=== PATIENT | male | born 1975 | race Caucasian/White ===

== ENCOUNTER 2023-10-20 00:05 | Inpatient (IN) | payer OTHER, SELFPAY ==
[~2023-10-20] VITALS: Ht 177.8 cm; Wt 98.4 kg
[2023-10-21] VITALS (8 sets, daily range): BP systolic 136–159; BP diastolic 84–96; TEMP 97.4–98.8; O2SAT 91–99
[2023-10-21] MEDS ORDERED: ONDANSETRON 4MG 2ML VIAL IV PRN ×2 (03:10→12:00)
[2023-10-21] MEDS ORDERED: MORPHINE 2 MG/ML 1ML VIAL IV PRN ×2 (03:15)
[2023-10-21] MEDS: NS 1,000 ML IV SCH ×2 (03:20→10:19)
[2023-10-21] MEDS ORDERED: GLUCAGON INJ 1MG VIAL SC PRN (03:25)
[2023-10-21] MEDS ORDERED: DEXTROSE 50% 50ML SYRINGE IV PRN (03:25)
[2023-10-21] MEDS ORDERED: GLUCOSE 4GM CHEW TABLET PO PRN (03:25)
[2023-10-21 03:37] LABS: BASO # 0.1 10^3/uL (0.0-0.2); BASO % 0.6 % (0.0-1.0); EOS # 0.2 10^3/uL (0.0-0.5); EOS % 1.5 % (0.0-3.0); HEMATOCRIT 42.5 % (42.0-52.0); HEMOGLOBIN 14.3 g/dl (13.5-17.5); LYMPH # 2.8 10^3/uL (1.5-5.0); LYMPH % 27.4 % (24.0-44.0); MEAN CORPUSCULAR HEMOGLOBIN 29.8 pg (27.0-33.0); MEAN CORPUSCULAR HGB CONC 33.6 g/dl (32.0-36.5); MEAN CORPUSCULAR VOLUME 88.5 fl (80.0-96.0); MONO # 0.8 10^3/uL (0.0-0.8); NEUTROPHILS # 6.3 10^3/uL (1.5-8.5); NEUTROPHILS % 62.2 % (36.0-66.0); PLATELET COUNT, AUTOMATED 210 10^3/uL (150-450); WHITE BLOOD COUNT 10.1 10^3/uL (4.0-10.0)
[2023-10-21 04:01] LABS: ALBUMIN 3.8 G/DL (3.2-5.2); BILIRUBIN,TOTAL 0.5 MG/DL (0.3-1.2); CALCIUM LEVEL 8.5 MG/DL (8.5-10.1); CREATININE FOR GFR 1.44 MG/DL (0.70-1.30); POTASSIUM SERUM 4.3 MMOL/L (3.5-5.1); TOTAL PROTEIN 6.5 G/DL (5.7-8.2)
[2023-10-21] MEDS ORDERED: HOME MED LIST COMPLETE! XX SCH (06:50)
[2023-10-21] MEDS: TAMSULOSIN 0.4 MG CAP PO SCH (09:00)
[2023-10-21] MEDS: cefTRIAXone SOD 2 GM in D5W MINI-BAG PLUS 50 ML IV SCH (10:43)
[2023-10-21] MEDS ORDERED: ISOVUE-300 61% 50ML VIAL XX ONE (11:08)
[2023-10-21] MEDS ORDERED: fentaNYL 100 MCG/2 ML INJECTION As Ordered ONE (11:27)
[2023-10-21] MEDS ORDERED: ACETAMINOPHEN 1000MG 100ML IV BAG As Ordered ONE (11:27)
[2023-10-21] MEDS ORDERED: propofoL 200 MG/20 ML VIAL As Ordered ONE ×2 (11:27→12:04)
[2023-10-21] MEDS ORDERED: MIDAZOLAM INJ 2MG/2ML VIAL As Ordered ONE (11:27)
[2023-10-21] MEDS ORDERED: ONDANSETRON 4MG 2ML VIAL As Ordered ONE (11:27)
[2023-10-21] MEDS ORDERED: LIDOCAINE 2% 100MG/5ML SDV (FOR ANES.) As Ordered ONE (11:27)
[2023-10-21 11:32] LABS: PHOSPHORUS LEVEL 3.4 MG/DL (2.5-4.9)
[2023-10-21] MEDS ORDERED: LR 1,000 ML IV SCH (12:00)
[2023-10-21] MEDS ORDERED: fentaNYL 100 MCG/2 ML INJECTION IV PRN (12:00)
[2023-10-21] MEDS ORDERED: oxyCODONE 5MG TAB PO PRN (12:00)
[2023-10-21 12:42] LABS: APPEARANCE, URINE CLEAR (CLEAR); BACTERIA, URINE AUTO NEGATIVE (NEGATIVE); BILIRUBIN, URINE AUTO NEGATIVE (NEGATIVE); BLOOD, URINE BLOOD 2+ (NEGATIVE); COLOR, URINE COLORLESS (YELLOW); GLUCOSE, URINE (UA) AUTO NEGATIVE (NEGATIVE); KETONE, URINE AUTO NEGATIVE (NEGATIVE); LEUKOCYTE ESTERASE, URINE AUTO NEGATIVE (NEGATIVE); NITRITE, URINE AUTO NEGATIVE (NEGATIVE); PROTEIN, URINE AUTO NEGATIVE (NEGATIVE); RBC, URINE AUTO 60 /HPF (0-3); SPECIFIC GRAVITY URINE AUTO 1.004 (1.002-1.035); SQUAMOUS EPITHELIAL CELL UR AU 0 /HPF (0-6); UROBILINOGEN, URINE AUTO 0.2 mg/dL (0.0-2.0); WBC, URINE AUTO 1 /HPF (0-3)
[2023-10-21] MEDS: MORPHINE 2 MG/ML 1ML VIAL IV PRN ×2 (16:37→21:16)
[2023-10-22 01:48] VITALS: BP 128/83; TEMP 97.7; O2SAT 94
[2023-10-22] MEDS: MORPHINE 2 MG/ML 1ML VIAL IV PRN (03:59)
[2023-10-22 05:52] VITALS: BP 137/89; TEMP 98.8; O2SAT 93
[2023-10-22 05:52] LABS: BASO % 0.4 % (0.0-1.0); EOS # 0.1 10^3/uL (0.0-0.5); EOS % 0.7 % (0.0-3.0); HEMATOCRIT 41.8 % (42.0-52.0); HEMOGLOBIN 13.9 g/dl (13.5-17.5); LYMPH # 2.5 10^3/uL (1.5-5.0); LYMPH % 25.3 % (24.0-44.0); MEAN CORPUSCULAR HEMOGLOBIN 29.6 pg (27.0-33.0); MEAN CORPUSCULAR HGB CONC 33.3 g/dl (32.0-36.5); MEAN CORPUSCULAR VOLUME 88.9 fl (80.0-96.0); MONO # 0.7 10^3/uL (0.0-0.8); NEUTROPHILS # 6.5 10^3/uL (1.5-8.5); NEUTROPHILS % 66.3 % (36.0-66.0); PLATELET COUNT, AUTOMATED 196 10^3/uL (150-450); WHITE BLOOD COUNT 9.8 10^3/uL (4.0-10.0)
[2023-10-22 06:23] LABS: BLOOD UREA NITROGEN 16 MG/DL (9-23); CALCIUM LEVEL 8.5 MG/DL (8.5-10.1); CARBON DIOXIDE LEVEL 27 MMOL/L (20-31); CHLORIDE LEVEL 108 MMOL/L (98-107); CREATININE FOR GFR 1.03 MG/DL (0.70-1.30); GLOMERULAR FILTRATION RATE > 60.0 (>60); GLUCOSE, FASTING 90 MG/DL (60-100); POTASSIUM SERUM 4.2 MMOL/L (3.5-5.1); SODIUM LEVEL 144 MMOL/L (136-145)
[2023-10-22] MEDS: TAMSULOSIN 0.4 MG CAP PO SCH (08:33)
[2023-10-22] MEDS ORDERED: traMADol 50 MG TAB PO PRN (09:30)
[2023-10-22] MEDS ORDERED: ACETAMINOPHEN 500 MG TAB PO PRN (09:30)
[2023-10-22 10:00] VITALS: BP 132/85; TEMP 97.6; O2SAT 94
[2023-10-22 14:00] VITALS: BP 125/81; TEMP 98.4; O2SAT 95
[2023-10-22] MEDS: cefTRIAXone SOD 2 GM in D5W MINI-BAG PLUS 50 ML IV SCH (20:12)
[2023-10-22 20:13] VITALS: BP 149/93; TEMP 98.4; O2SAT 96
[2023-10-23 05:39] VITALS: BP 128/83; TEMP 98.2; O2SAT 96
[2023-10-23 05:56] LABS: BASO # 0.1 10^3/uL (0.0-0.2); BASO % 0.7 % (0.0-1.0); EOS # 0.2 10^3/uL (0.0-0.5); EOS % 3.1 % (0.0-3.0); HEMATOCRIT 44.4 % (42.0-52.0); HEMOGLOBIN 14.6 g/dl (13.5-17.5); LYMPH # 3.1 10^3/uL (1.5-5.0); LYMPH % 41.5 % (24.0-44.0); MEAN CORPUSCULAR HGB CONC 32.9 g/dl (32.0-36.5); MEAN CORPUSCULAR VOLUME 88.3 fl (80.0-96.0); MONO # 0.6 10^3/uL (0.0-0.8); MONO % 8.5 % (2.0-8.0); NEUTROPHILS # 3.5 10^3/uL (1.5-8.5); NEUTROPHILS % 45.8 % (36.0-66.0); PLATELET COUNT, AUTOMATED 209 10^3/uL (150-450); RED BLOOD COUNT 5.03 10^6/uL (4.30-6.10); WHITE BLOOD COUNT 7.5 10^3/uL (4.0-10.0)
[2023-10-23 06:18] LABS: ALBUMIN 3.5 G/DL (3.2-5.2); BLOOD UREA NITROGEN 16 MG/DL (9-23); CALCIUM LEVEL 8.6 MG/DL (8.5-10.1); CARBON DIOXIDE LEVEL 28 MMOL/L (20-31); CHLORIDE LEVEL 108 MMOL/L (98-107); CREATININE FOR GFR 0.99 MG/DL (0.70-1.30); GLOMERULAR FILTRATION RATE > 60.0 (>60); GLUCOSE, FASTING 85 MG/DL (60-100); PHOSPHORUS LEVEL 3.1 MG/DL (2.5-4.9); SODIUM LEVEL 145 MMOL/L (136-145)
[2023-10-23] MEDS: TAMSULOSIN 0.4 MG CAP PO SCH (08:01)
== END 2023-10-23 11:40 | disposition home or self-care (01) | DRG 694 ==
LOC: M MS5PR 10-21 02:22
PROVIDERS: ADMIT Family Medicine; ATTEND Family Medicine
PROC: 0TC78ZZ Extirpation of Matter from Left Ureter, Via Natural or Artificial Opening Endoscopic (ICD-10-PCS; principal; 2023-10-21 12:00)
DX: N13.2 Hydronephrosis with renal and ureteral calculous obstruction (principal); F17.210 Nicotine dependence, cigarettes, uncomplicated